=== PATIENT | male | born 1975 | race Caucasian/White ===

== ENCOUNTER 2022-06-09 15:55 | Emergency (ER) | payer OTHER ==
[~2022-06-09 15:55] MED LIST: SYNTHROID112 MCG PO
[2022-06-09 16:34] LABS: BILIRUBIN NEGATIVE (NEGATIVE); BLOOD 1+ Ery/uL (NEGATIVE); CLARITY CLEAR (CLEAR); COLOR YELLOW (YELLOW); GLUCOSE (U) NORMAL (NORMAL); LEUKOCYTES NEGATIVE Leu/uL (NEGATIVE); NITRITE NEGATIVE (NEGATIVE); PROTEIN TRACE (LOW) mg/dL (NEGATIVE); SPECIFIC GRAVITY >=1.030 (1.001-1.030); UROBILINOGEN 0.2 mg/dL (0.2-1.0); pH 5.5 (5.0-9.0)
[2022-06-09 16:38] LABS: BASOPHIL 0.8 % (0-2); EOSINOPHIL 1.6 % (0-5); HCT 49.1 % (42.0-52.0); HGB 16.9 g/dl (13.2-18.0); LYMPHOCYTE 16.7 % (15-48); MCH 31.5 pg (25.0-31.0); MCHC 34.4 g/dL (32.0-36.0); MCV 91.6 fL (78.0-100.0); MONOCYTE 8.6 % (0-12); MPV 9.8 fL (6.0-9.5); NRBC 0; PLT 264 K/uL (150-400); RBC 5.36 M/uL (4.70-6.00); RDW 11.9 % (11.5-14.0); WBC 8.9 K/uL (4.0-10.5)
[2022-06-09 16:43] LABS: BACTERIA TRACE; MUCOUS MODERATE; SQUAMOUS EPITHELIAL CELLS RARE; URINARY RBC RARE; URINARY WBC RARE
[2022-06-09 16:56] LABS: ALBUMIN 4.3 g/dL (3.4-5.0); BILIRUBIN - TOTAL 0.5 mg/dL (0.2-1.0); BUN/CREAT RATIO (CALC) 15.2 RATIO; CREATININE 1.45 mg/dL (0.67-1.17); GLOBULIN (CALCULATION) 3.2 g/dL; POTASSIUM 3.9 mmol/L (3.5-5.1); TOTAL PROTEIN 7.5 g/dL (6.4-8.2)
[2022-06-09 17:37] LABS: CORONAVIRUS 2019 SARS-COV-2 NEGATIVE (NEGATIVE); INFLUENZA A NAA NEGATIVE (NEGATIVE)
[2022-06-09] MEDS ORDERED: ONDANSETRON HCL4 MG PO (19:00)
[2022-06-09] MEDS ORDERED: NORCO 5-325 TA1 EACH PO (19:00)
[2022-06-09] MEDS ORDERED: FLOMAX 0.4 MG0.4 MG PO (19:00)
== END 2022-06-09 19:42 | disposition home or self-care (01) ==
LOC: FER 15:55
PROVIDERS: Nurse Practitioner Family
DX: N13.0 Hydronephrosis with ureteropelvic junction obstruction (principal); Z20.822 Contact with and (suspected) exposure to COVID-19; Z28.310 Unvaccinated for COVID-19
CPT/HCPCS: 36415; 80053; 81001; 82150; 83690; 85025; J1170; J1885; J2405; J2550; J7030; Q9967; U0002